=== PATIENT | female | born 1970 | race Caucasian/White ===

== ENCOUNTER → 2016-05-18 | Outpatient (CLI) | payer BC ==
[~2016-05-18] MED LIST: EFFEXOR XR150 MG PO; PRISTIQ50 MG; PRISTIQ50 MG PO; SEMPREX D PO; SUPER B COMPLEX1 CAP PO; VITAMIN D50000 UNIT PO; ZYRTEC
--- NOTE | ~2016-05-18 | MY11 ---
[facility] A Service of [facility] & [facility] RADIOLOGY TEXT RESULTS PATIENT: LENO PRITCHETT LOCATION: [facility] : 72 UNIT #: [id number] AGE: [address]: Peter Hope MD SEX: F ORDER DR: [id number] [facility] [address]. [place], [place] [address] [id number] O MR#: [id number] Acc #: [id number] NAME: LENO PRITCHETT. : 1970 SEX: F STUDY DATE/TIME: 05/18/2016 13:20 UNIT: [facility] ROOM: STUDY DESCRIPTION: MY Mammogram Screening [place] Attending Physician: Peter Hope M.D. Referring Physician: Peter Hope M.D. Ordering Physician: Peter Hope M.D. Primary Care Physician: Peter Hope M.D. MEDICAL IMAGING REPORT This report is preliminary unless electronic signature is present EXAM Bilateral digital screening mammogram with CAD 05/18/2016 INDICATIONS 46-year-old female for routine screening. No reported problems no personal history or family history of breast cancer. History of breast reduction procedure 06/03/2015. Skin graft procedure 07/15/2015. TECHNIQUE CC and MLO views of the breast were obtained and reviewed with an FDA-approved CAD device COMPARISON 05/20/2014 05/08/2013 04/04/2012 FINDINGS The patient has undergone the breast reduction and skin graft procedures in June and July of 2015 since the prior mammogram. Breast parenchyma is composed of scattered fibroglandular densities, the pattern is unchanged. Postoperative sequela noted in both breasts related to the breast reduction procedures. There is no new dominant nodule mass or suspicious cluster of microcalcifications. There are scattered faint calcifications in the right breast most characteristic of fat necrosis. There is a well circumscribed area of new fat necrosis in the upper outer posterior left breast as well. No new adenopathy. IMPRESSION 1. Interval reduction in breast size and changes in both breasts related to bilateral breast reduction procedure that has occurred in the interval since the prior study in 2014. Sequela of fat necrosis bilaterally. Benign findings and 1 year followup recommended. Patients over the age of 40 are entered into a reminder system with target STS. [facility] A Service of [facility] RADIOLOGY TEXT RESULTS PATIENT: LENO PRITCHETT LOCATION: [facility] : 72 UNIT #: [id number] AGE: [address]: Peter Hope MD SEX: F ORDER DR: due date for the next mammogram. A result letter will also be sent to the patient. BIRADS: 2, benign findings. Dictated by... Ace Demarco M.D. THIS IS AN ELECTRONICALLY VERIFIED REPORT Ace Demarco M.D. at 05/21/2016 7:43 AM KAVIN/clarence TD: 05/19/2016 03:46 JOB #: [id number] MEDICAL IMAGING REPORT COPY
== END | disposition home or self-care (01) ==
LOC: CWCC 12:58
DX: Z12.31 Encounter for screening mammogram for malignant neoplasm of breast (principal); N64.1 Fat necrosis of breast; Z98.890 Other specified postprocedural states
CPT/HCPCS: G0202